=== PATIENT | female | born 1995 | race Caucasian/White ===

== ENCOUNTER → 2016-08-30 | Outpatient (CLI) | payer BC ==
--- NOTE | 2016-08-31 08:07 | XR ---
EXAMINATION TYPE: XR lumbosacral spine min 4V DATE OF EXAM: 08/30/2016 2:18 PM CLINICAL HISTORY: Lumbago per order. TECHNIQUE: Frontal, lateral, and oblique images of the lumbar spine are obtained. COMPARISON: Prior lumbar spine x-ray January 29, 2014 FINDINGS: There are 5 lumbar type vertebral bodies identified. The lumbar spine shows satisfactory alignment without evidence of acute fracture or dislocation. Vertebral body heights and disk space he ights are within normal limits. The oblique images appear within normal limits. The overlying soft tissue appears unremarkable. IMPRESSION: Unremarkable study. No significant change from prior.
--- NOTE | 2016-08-31 08:09 | XR ---
EXAMINATION TYPE: XR sacrum coccyx DATE OF EXAM: 08/30/2016 2:18 PM COMPARISON: Prior sacrum and coccyx x-ray January 29, 2014. HISTORY: Coccydynia per order. TECHNIQUE: 2 views of sacrum and coccyx are obtained. FINDINGS: There is no acute fracture or dislocation in sacrum or coccyx. Sacral alar are maintained b ilaterally. Sacroiliac joints are symmetric and felt within normal limits. Overlying soft tissue is u nremarkable. IMPRESSION: Unremarkable study. No significant change from prior.
== END | disposition home or self-care (01) ==
LOC: RADXRYALE 13:57
PROVIDERS: ATTEND Nurse Practitioner Family
DX: M54.5 Low back pain (principal); M53.3 Sacrococcygeal disorders, not elsewhere classified
CPT/HCPCS: 72110; 72220

== ENCOUNTER → 2021-11-03 | Outpatient (CLI) | payer OTHER ==
--- NOTE | 2021-11-03 12:36 | US ---
EXAMINATION TYPE: US st tissue neck DATE OF EXAM: 11/03/2021 COMPARISON: NONE CLINICAL HISTORY: 26-year-old female R59.9 ENLARGED LYMPH NODES. Patient states having 3 palpable are as along the neck. No recent covid vaccine. Patient states she has not been sick recently. Technique: Targeted ultrasound along the left side of the neck corresponding to the patient's palpabl e sites. FINDINGS: [employer] Services Director notes: Area of concern scanned with lymph nodes seen, short axis measurements: 1- left lateral neck inferior to ear = 1.4 cm 2- left lateral neck near submandibular gland = 1.6 cm 3- right lateral neck near submandibular gland = 1.2 cm IMPRESSION: 3 enlarged lymph nodes along the left side of the neck. Short axis measurements up to 1.6 cm. Long ax is measurements up to 2.9 cm. These may be reactive/post inflammatory. 6 week follow-up ultrasound to ensure improvement. If persistence or progressive enlargement, tissue sampling can be considered.
== END | disposition home or self-care (01) ==
LOC: RADUSWWP 06:57 → MERGE 07:00
PROVIDERS: ATTEND Family Medicine
DX: R59.9 Enlarged lymph nodes, unspecified (principal)
CPT/HCPCS: 76536